=== PATIENT | male | born 1960 | race Caucasian/White ===

== ENCOUNTER 2017-08-27 10:20 | Emergency (ER) | payer OTHER ==
[~2017-08-27] VITALS: Ht 185.4 cm; Wt 99.8 kg
[~2017-08-27 10:20] MED LIST: BENADRYL25 MG PO; CLIN150 PO; DICL75ER PO; LISI5 PO; Norco 5-325 Ta1 EACH PO
[2017-08-27 11:01] LABS: Source, Urine Clean Catch
[2017-08-27 11:04] LABS: Bilirubin, Urine Neg (Neg); Blood, Urine Neg (Neg); Glucose Qualitative, Urine Neg (Neg); Ketones, Urine Neg (Neg); Leukocyte Esterase, Urine Neg (Neg); Nitrite, Urine Neg (Neg); Protein, Urine Neg (Neg); Specific Gravity, Urine 1.015 (1.003-1.022); Urobilinogen, Urine NORM (Normal)
[2017-08-27 11:14] LABS: Appearance, Urine Clear (Clear); Color, Urine Pale Yellow (P-Yellow)
== END 2017-08-27 11:23 | disposition home or self-care (01) ==
LOC: ER 10:20
PROVIDERS: Physician Assistant
DX: R10.9 Unspecified abdominal pain (principal); F17.200 Nicotine dependence, unspecified, uncomplicated; Z79.899 Other long term (current) drug therapy
CPT/HCPCS: 81003; 99283

== ENCOUNTER 2018-03-05 11:37 | Emergency (ER) | payer OTHER ==
[~2018-03-05] VITALS: Ht 185.4 cm; Wt 95.2 kg
[2018-03-05] MEDS ORDERED: MONT4 PO (11:49)
[2018-03-05] MEDS ORDERED: CYCL10 PO (12:20)
== END 2018-03-05 12:27 | disposition home or self-care (01) ==
LOC: ER 11:37
DX: M54.6 Pain in thoracic spine (principal); Z79.899 Other long term (current) drug therapy; I10 Essential (primary) hypertension; F17.200 Nicotine dependence, unspecified, uncomplicated
CPT/HCPCS: 96372; 99283; J1885